=== PATIENT | female | born 1930 | race Caucasian/White ===

== ENCOUNTER 2019-01-05 10:23 | Observation (INO) | payer MEDICARE, OTHER ==
[2019-01-05] MEDS ORDERED: Meclizine TAB* 12.5 MG PO ONE (11:09)
[2019-01-05] MEDS ORDERED: Labetalol IV* 5 MG/ML 20 ML VIAL IV PUSH ONE (11:10)
--- NOTE | 2019-01-05 11:17 | ED ---
Hypertension - HPI Summary HPI Summary: This patient is an 88 year old F presenting to ED with a chief complaint of hypertension since last evening. The patient reports a blood pressure of 175/91 mmHg prior to arrival. The hypertension is alleviated when lying down and is accompanied by dizziness that started at 02:30 and a feeling of unbalance. The patient reports no chest pain, shortness of breath, or headache. Pain is rated 0 /10 in severity. Medications reviewed. Allergies noted. - History of Current Complaint Chief Complaint: EDHypertension Stated Complaint: NEEDS BRAIN SCAN PER PT Time Seen by Provider: 01/05/19 11:02 Hx Obtained From: Patient Onset/Duration: Started Hours Ago Timing: Constant, Lasting Hours Reported Blood Pressure Prior To Arrival: 175/91 Aggravating Factor(s): Nothing Alleviating Factor(s): Position - Lying down Associated Signs & Symptoms: Dizziness, Other: - loss of balance Related Hx: Diagnosed As: - HTN - Allergies/Home Medications Allergies/Adverse Reactions: Allergies Allergy/AdvReac Type Severity Reaction Status Date / Time No Known Allergies Allergy Verified 01/05/19 10:28 Home Medications: Home Medications Simvastatin TAB(NF) [Zocor 20 MG (NF)] 20 mg PO DAILY 01/05/19 [History Confirmed 01/05/19] amLODIPine TAB* [Norvasc 5 mg TAB*] 2.5 mg PO DAILY 01/05/19 [History Confirmed 01/05/19] PMH/Surg Hx/FS Hx/Imm Hx Previously Healthy: Yes Endocrine/Hematology History: Denies: Hx Diabetes Cardiovascular History: Reports: Hx Hypercholesterolemia, Hx Hypertension Musculoskeletal History: Reports: Hx Scoliosis - Cancer History Cancer Type, Location and Year: Colon cancer in remission - Surgical History Surgical History: Yes Surgery Procedure, Year, and Place: Knee replacement Infectious Disease History: No Infectious Disease History: Denies: Traveled Outside the [place] in Last 30 Days - Family History Known Family History: Positive: Cardiac Disease, Hypertension, Diabetes - Social History Alcohol Use: None Hx Substance Use: No Substance Use Type: Reports: None Hx Tobacco Use: No Smoking Status (MU): Never Smoked Tobacco Review of Systems Negative: Fever Negative: Chest Pain Negative: Shortness Of Breath Neurological: Other - Dizziness, loss of balance Negative: Headache All Other Systems Reviewed And Are Negative: Yes Physical Exam - Summary Physical Exam Summary: VITAL SIGNS: Reviewed. GENERAL: Patient is a well-developed and nourished female who is lying comfortable in the stretcher. Patient is not in any acute respiratory distress. HEAD AND FACE: No signs of trauma. No ecchymosis, hematomas or skull depressions. No sinus tenderness. EYES: PERRLA, EOMI x 2, No injected conjunctiva, no nystagmus. EARS: Hearing grossly intact. Ear canals and tympanic membranes are within normal limits. MOUTH: Oropharynx within normal limits. NECK: Supple, trachea is midline, no adenopathy, no JVD, no carotid bruit, no c- spine tenderness, neck with full ROM. CHEST: Symmetric, no tenderness at palpation. LUNGS: Clear to auscultation bilaterally. No wheezing or crackles. CVS: Regular rate and rhythm, S1 and S2 present, no murmurs or gallops appreciated. ABDOMEN: Soft, non-tender. No signs of distention. No rebound, no guarding, and no masses palpated. Bowel sounds are normal. EXTREMITIES: FROM in all major joints, no edema, no cyanosis or clubbing. NEURO: Alert and oriented x 3. No acute neurological deficits. Speech is normal and follows commands. SKIN: Dry and warm. GCS: 15. Triage Information Reviewed: Yes Vital Signs On Initial Exam: Initial Vitals Temp Pulse Resp BP Pulse Ox 98.0 F 81 16 170/116 98 01/05/19 10:28 01/05/19 10:28 01/05/19 10:28 01/05/19 10:28 01/05/19 10:28 Vital Signs Reviewed: Yes - [place] Coma Scale Best Eye Response: 4 - Spontaneous Best Motor Response: 6 - Obeys Commands Best Verbal Response: 5 - Oriented Coma Scale Total: 15 Diagnostics - Vital Signs Vital Signs Temp Pulse Resp BP Pulse Ox 01/05/19 10:28 98.0 F 81 16 170/116 98 - Laboratory Result Diagrams: 01/05/19 11:45 01/06/19 06:02 Lab Statement: Any lab studies that have been ordered have been reviewed, and results considered in the medical decision making process. - Radiology Chest XR Radiology Interpretation Completed By: Radiologist Summary of Radiographic Findings: IMPRESSION: No acute cardiopulmonary process by radiograph. ED Physician has reviewed this radiology report. Brain MRI Radiology Interpretation Completed By: Radiologist Summary of Radiographic Findings: Impression: 1. No acute intracranial abnormality. 2. 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 3. Moderate cerebral volume loss. ED physician has reviewed this report. - CT Head CT CT Interpretation Completed By: Radiologist Summary of CT Findings: IMPRESSION: 1. No acute intracranial abnormality by CT. 2. 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 3. Mild cerebral and cerebellar volume loss. ED physician has reviewed this radiology report. - EKG 1115 Cardiac Rate: NL - 73 bpm EKG Rhythm: Sinus Rhythm Summary of EKG Findings: EKG at 1115 shows normal sinus rhythm at [address] elevations. Normal axis. Re-Evaluation - Re-Evaluation First Eval Re-Evaluation Time: 12:15 Change: Unchanged Comment: Patient is still feeling dizzy following medications. Her BP continues to be elevated. Second Eval Re-Evaluation Time: 13:30 Change: Unchanged Comment: Patient continues to be dizzy. Third Eval Re-Evaluation Time: 14:15 Change: Unchanged Comment: We discussed likely plan for admission as the patient is still dizzy. Hypertension Course/Dx - Course Assessment/Plan: Patient is an 88 y/o F with a chief complaint of hypertensive episode accompanied by dizziness beginning this morning at 0230. Blood work without any significant abnormality except for sodium level of 129, chloride of 95, and glucose of 106. The troponin is 0.00. Urinalysis is negative for infection. In the ED course, the patient was initially given Labetalol since the patients blood pressure is elevated, and she was given meclizine for dizziness. Head CT impression: No acute interconnected abnormality. Moderate chronic small vessel ischemic disease. Mild cerebral and cerebellar volume loss. The blood pressure stayed elevated to 159/91 mmHg, therefore the patient was given an additional dose of Amlodipine 5 mg by mouth, which is her usual dose for hypertension. Patients dizziness continued to be present therefore the patient was given Valium. She was also given Zofran for nausea and vomiting , which resolved her symptoms. After these medications, she was instructed to ambulate, and the patient continues to be dizzy. Therefore, I decided to do an MRI of the brain. MRI of the brain impression: No acute intracranial abnormality. Patient continues to be dizzy, therefore I discussed my physical exam and findings with Dr. Martin who accepted the patient for admission. The patient is hemodynamically stable alert and oriented 3. - Diagnoses Provider Diagnoses: Dizziness - Physician Notifications Discussed Care Of Patient With: Neelam Martin - Hospitalist Time Discussed With Above Provider: 14:30 Instructed by Provider To: Admit As Observation - I discussed the patient's case with Dr. Martin and she accepts the patient for admission. Discharge ED - Sign-Out/Discharge Documenting (check all that apply): Patient Departure - Accepted for admission Patient Received Moderate/Deep Sedation with Procedure: No - Discharge Plan Condition: Stable Disposition: ADMITTED TO [facility] - Billing Disposition and Condition Condition: STABLE Disposition: Admitted to [facility] - Attestation Statements Document Initiated by Scribe: Yes Documenting Scribe: Yadiel Thurston Provider For Whom Adrian is Documenting (Include Credential): Joni Espinosa MD. Scribe Attestation: Yadiel Wiley, scribed for Joni Espinosa MD. on 01/06/19 at 1828. Scribe Documentation Reviewed: Yes Provider Attestation: The documentation as recorded by the scribeYadiel accurately reflects the service I personally performed and the decisions made by , Joni Espinosa MD. Status of Scribe Document: Viewed
[2019-01-05 11:53] LABS: ABS Lymphocytes 0.6 10^3/ul (1.0-4.8); ABS Monocytes 0.4 10^3/ul (0-0.8); ABS Neutrophils 5.5 10^3/ul (1.5-7.7); Eosinophil % 0.1 %; Hematocrit 42 % (35-47); Hemoglobin 14.5 g/dL (12.0-16.0); Lymphocyte % 9.4 %; Mean Corpuscular HGB Conc 34 g/dL (31-36); Mean Corpuscular Hemoglobin 34 pg (27-31); Mean Corpuscular Volume 98 fL (80-97); Mean Platelet Volume 8.7 fL (7.4-10.4); Platelet Count 245 10^3/uL (150-450); Red Cell Distribution Width 13 % (10-15); White Blood Count 6.6 10^3/uL (3.5-10.8)
[2019-01-05 12:10] LABS: Albumin 4.4 g/dL (3.2-5.2); Albumin/Globulin Ratio 1.5 (1-3); C Reactive Protein 1.05 mg/L (<8.01); Calcium 9.5 mg/dL (8.6-10.3); EGFR African American 106.5 (>60); Magnesium 1.9 mg/dL (1.9-2.7); Total Bilirubin 0.5 mg/dL (0.2-1.0); Total Protein 7.4 g/dL (6.4-8.9)
[2019-01-05] MEDS ORDERED: amLODIPine TAB* 5 MG PO ONE (12:36)
[2019-01-05 12:47] LABS: TSH (Thyroid Stimulating Horm) 1.5 mcIU/mL (0.34-5.60)
[2019-01-05] MEDS ORDERED: Diazepam TAB(*) 5 MG PO ONE (13:30)
[2019-01-05 15:43] LABS: Urine Appearance Clear; Urine Bilirubin Negative (Negative); Urine Blood Negative (Negative); Urine Color Yellow; Urine Glucose Negative (Negative); Urine Ketones Negative (Negative); Urine Nitrite Negative (Negative); Urine Protein Negative (Negative); Urine Specific Gravity 1.015 (1.010-1.030); Urine Urobilinogen Negative (Negative)
[2019-01-05] MEDS ORDERED: Acetaminophen TAB* 325 MG PO PRN (16:52)
[2019-01-05] MEDS ORDERED: Enoxaparin(*) 30 MG/0.3 ML SYR SUBCUT SCH (18:00)
--- NOTE | 2019-01-05 18:26 | HP ---
History of Present Illness - History of Present Illness Reason for Visit: Dizziness History of Present Illness: 88 y/o F with history of Hypertension, Hyperlipidemia, Colon cancer(s/p surgery and chemo), scoliosis presented with dizziness that started 2:30 AM in the morning when she woke up from sleep to urinate. She felt unsteady at that time but could to go the bathroom and come back. She woke in the morning and she still had dizziness; she felt as the room is spinning around. She states that her dizziness was worse when standing or getting up and decreased while she was lying down. No relation to specific activities like getting overhead bins, tieing shoe lace. She had some nausea but no vomiting and tinnitus. She then checked her Blood Pressure three time and it was 175/91 mm Hg. she then called her PCP and visited where her BP was still high. ECG was normal. She was then asked to come here. There is no history of weakness, aphasia, slurry speech, facial droop, headache. She denies recent upper respiratory tract infection like runny nose, sore throat, fever or cough. No history of chest pain, palpitation or syncope. She states that she has some urgency but no increased frequency or burning micturition. On ED, her BP was noted to be 170/116 mm Hg; other Vital signs normal. She was given labetalol 10 mg IV and meclizine 50mg PO and diazepam 2.5 mg PO. 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 Chest XRay was normal. Brain CT and MRI didnot showed any acute changes. - Past Medical History Past Medical History: 1. Hypertension 2. Hyperlipidemia 3. Scoliosis; diagnosed on 2005, had difficulty in walking and worked with PT but didnot helped 4. Colon Cancer- 16 years ago; treated surgically and with chemo 5. Varicose vein - Past Surgical History Past Surgical History: 1. Left knee Replacement-2005 - Past Family History Past Family History: Family history positive for dementia and cancer in father. Her brother had some aneurysm and of heart disease. She has 3 children. - Past Social History Past Social History: She is and lives with her . She doesnot smoke and doesnot drinks alcohol. No recreational drug use. Her health care proxy is her -Kobe Moss([phone]) - Health Maintenance Health Maintenance: Had DEXA scan 1 year ago which was normal. Review of Systems - Review of Systems Gastrointestinal: Positive: Nausea Genitourinary: Positive: Other - urgency - Medications/Allergies Allergies/Adverse Reactions: Allergies Allergy/AdvReac Type Severity Reaction Status Date / Time No Known Allergies Allergy Verified 01/05/19 10:28 Medications: Current Medications Acetaminophen (Tylenol Tab*) 650 mg PO Q4H PRN PRN Reason: MILD PAIN or TEMP > 100.4 Amlodipine Besylate (Norvasc Tab*) 2.5 mg PO DAILY [facility] Atorvastatin Calcium (Lipitor*) 10 mg PO DAILY [facility] Enoxaparin Sodium (Lovenox(*)) 30 mg SUBCUT Q24H [facility] Lisinopril (Prinivil Tab*) 5 mg PO DAILY [facility] Exam Vital Signs: Vital Signs (72 hours) 01/05/19 01/05/19 01/05/19 10:28 11:23 11:24 Temperature 98.0 F Pulse Rate 81 78 76 Respiratory 16 18 16 Rate Blood Pressure 170/116 166/88 (mmHg) O2 Sat by Pulse 98 97 97 Oximetry 01/05/19 01/05/19 01/05/19 11:52 12:09 12:11 Temperature Pulse Rate 74 Respiratory 21 15 20 Rate Blood Pressure 132/81 159/91 (mmHg) O2 Sat by Pulse 97 Oximetry 01/05/19 01/05/19 01/05/19 12:23 12:45 12:53 Temperature Pulse Rate 67 Respiratory 20 25 17 Rate Blood Pressure 139/79 148/83 152/82 (mmHg) O2 Sat by Pulse 89 Oximetry 01/05/19 01/05/19 01/05/19 13:00 13:19 13:21 Temperature Pulse Rate 68 Respiratory 20 12 26 Rate Blood Pressure 146/77 162/85 (mmHg) O2 Sat by Pulse 97 Oximetry 01/05/19 01/05/19 01/05/19 13:22 13:23 13:28 Temperature Pulse Rate 70 75 Respiratory 15 24 Rate Blood Pressure 158/89 157/81 158/89 (mmHg) O2 Sat by Pulse 97 Oximetry 01/05/19 01/05/19 01/05/19 13:44 13:53 14:00 Temperature Pulse Rate 67 67 Respiratory 18 13 16 Rate Blood Pressure 135/76 (mmHg) O2 Sat by Pulse 92 92 Oximetry 01/05/19 01/05/19 01/05/19 14:32 14:53 15:00 Temperature Pulse Rate 71 70 71 Respiratory 22 27 25 Rate Blood Pressure 135/77 128/79 (mmHg) O2 Sat by Pulse 95 93 92 Oximetry 01/05/19 01/05/19 01/05/19 15:23 15:53 16:00 Temperature Pulse Rate 77 76 77 Respiratory 23 19 21 Rate Blood Pressure 150/98 146/83 (mmHg) O2 Sat by Pulse 97 95 95 Oximetry 01/05/19 01/05/19 01/05/19 16:53 17:00 17:23 Temperature Pulse Rate 70 67 67 Respiratory Rate Blood Pressure 121/70 116/67 (mmHg) O2 Sat by Pulse 91 93 93 Oximetry 01/05/19 17:55 Temperature 97.8 F Pulse Rate 67 Respiratory 18 Rate Blood Pressure 116/67 (mmHg) O2 Sat by Pulse 93 Oximetry Exam: Patient is lying on a bed and feeling sleepy. HEENT: Normocephalic and atraumatic. Sclera anicteric, No pallor. Wears hearing aid. Beatrice Hallpike's maneuver negative Lungs: Clear with no added sound. Heart: S1/S2 heard with no murmur, rubs or gallop Abdomen: Soft, nondistended and nontender. Old scar in midline. NOrmal Bowel sound heard Extremities; Dilated and tortous vein noted. No swelling or cyanosis. Neuro: Alert, oriented and conscious. CN intact except for hearing loss. Motor and sensory normal. NO aphasia. Gait is unsteady and has scoliosis. Assessment/Plan - Assessment/Plan Assessment: 88 y/o F with h/o HTN, HLD, Colon cancer(treated), scoliosis presented with sudden onset dizziness that lasted for hours and severe hypertension with no focal deficit. Brain Ct and MRI negative for acute changes. Plan: 1. Vertigo: Her symptoms are suggestive for peripheral vertigo but we need to rule out central causes as well. Differential include- BPPV, Meniere's, Vertebrobasilar insuffiency, Vestibular neuritis,or idiopathic. To rule out stroke/TIA CT and MRI of brain was done which was negative for acute changes. Most likely could be peripheral. We will admit her on observation and watch for any worsening or improvement of symptoms.We will ask PT to evaluate her and if necessary will consult Neuro. 2. Hyponatremia: Could be due to dehydration or due to use of HCTZ. We stopped her HCTZ and will check her BMP tomorrow. 3. Hypertension: We stopped her HCTZ and started onlisinopril 5 mg PO daily and continue her home amlodipine. 4. Hyperlipidemia: On simvastatin. We will check her Lipid panel tomorrow. 5.DVT Prophylaxis: On lovenox 6. Full code Attestation Documenting Resident: Chele Centeno Supervising Physician: Maegan Licea Attestation: This service has been performed in part by a resident under the direction of a teaching physician.I, Maegan Licea, performed the service, or was physically present during the critical, or noguera portions of the service, furnished by the resident. I participated in the management of the patient.
[2019-01-05] MEDS ORDERED: NS 0.9% 1000 ML** 1,000 ML IV ONE (18:54)
[2019-01-06 06:31] LABS: BUN/Creatinine Ratio 22.7 (8-20); EGFR African American 102.7 (>60); EGFR Non-African American 84.9 (>60); HDL Cholesterol 66.8 mg/dL; Potassium 3.9 mmol/L (3.5-5.0)
--- NOTE | 2019-01-06 06:42 | PN ---
Subjective Date of Service: 01/06/19 Interval History: HD1 on 01/06/2019 88 y/o F with h/o HTN, HLD, Colon cancer(treated), scoliosis presented with sudden onset dizziness that lasted for hours and severe hypertension with no focal deficit. Brain Ct and MRI negative for acute changes. No acute overnight events VS stable Patient is feeling well. nO dizziness. wants to go home. Objective Active Medications: Acetaminophen (Tylenol Tab*) 650 mg PO Q4H PRN PRN Reason: MILD PAIN or TEMP > 100.4 Amlodipine Besylate (Norvasc Tab*) 2.5 mg PO DAILY [facility] Atorvastatin Calcium (Lipitor*) 10 mg PO DAILY [facility] Enoxaparin Sodium (Lovenox(*)) 30 mg SUBCUT Q24H [facility] Last Admin: 01/05/19 18:31 Dose: 30 mg Lisinopril (Prinivil Tab*) 5 mg PO DAILY [facility] Vital Signs - 8 hr 01/05/19 01/06/19 23:38 04:06 Temperature 97.3 F 97.3 F Pulse Rate 69 68 Respiratory 19 18 Rate Blood Pressure 111/66 121/68 (mmHg) O2 Sat by Pulse 98 96 Oximetry Oxygen Devices in Use Now: None Exam: Patient is lying on a bed. HEENT: Normocephalic and atraumatic. Sclera anicteric, No pallor. Wears hearing aid. Lungs: Clear with no added sound. Heart: S1/S2 heard with no murmur, rubs or gallop Abdomen: Soft, nondistended and nontender. Old scar in midline. NOrmal Bowel sound heard Extremities; Dilated and tortous vein noted. No swelling or cyanosis. Neuro: Alert, oriented and conscious. CN intact except for hearing loss. Motor and sensory normal. No aphasia. Gait normal Result Diagrams: 01/05/19 11:45 01/06/19 06:02 Assess/Plan/Problems-Billing Assessment: 88 y/o F with h/o HTN, HLD, Colon cancer(treated), scoliosis presented with sudden onset dizziness that lasted for hours and severe hypertension with no focal deficit. Brain Ct and MRI negative for acute changes. - Patient Problems (1) Vertigo Status: Acute Code(s): R42 - DIZZINESS AND GIDDINESS SNOMED Code(s): 299511974 Comment: most likely peripheral- BPPV, Vestibular neuritis, Meniere's, Idiopathic No focal deficits, acute imaging changes-ruled out central idiopathic- couldnot elicit nystagmus in briana-hallpike's, no URI, no tinnitus. improved after getting 1L of NS. No improvement on meclizine (2) Hypertension Status: Acute Code(s): I10 - ESSENTIAL (PRIMARY) HYPERTENSION SNOMED Code(s) : 89327755 Comment: 170/110 on ED At home 3 reading of BP around 170/100. received IV labetalol at ED BP controlled thiazide diuretic changed to lisinopril because of hyponatremia which could be causing dizziness. (3) Hyperlipidemia Status: Acute Code(s): E78.5 - HYPERLIPIDEMIA, UNSPECIFIED SNOMED Code(s): 63150759 Comment: On atorvastatin (4) DVT prophylaxis Status: Acute Code(s): Z29.9 - ENCOUNTER FOR PROPHYLACTIC MEASURES, UNSPECIFIED SNOMED Code(s): 655720591 Comment: on lovenox (5) Full code status Status: Acute Code(s): Z78.9 - OTHER SPECIFIED HEALTH STATUS SNOMED Code(s) : 249987566 Status and Disposition: observation can be dc after PT evaluation Attending: Maegan Licea Attestation Documenting Resident: Chele Centeno Supervising Physician: Maegan Licea Attestation: This service has been performed in part by a resident under the direction of a teaching physician.I, Maegan Licea, performed the service, or was physically present during the critical, or noguera portions of the service, furnished by the resident. I participated in the management of the patient.
[2019-01-06 08:45] VITALS: BP 142/75
[2019-01-06] MEDS ORDERED: Lisinopril TAB* 5 MG PO SCH (09:00)
[2019-01-06] MEDS ORDERED: amLODIPine TAB* 5 MG PO SCH (09:00)
[2019-01-06] MEDS ORDERED: Atorvastatin* 10 MG TAB PO SCH (09:00)
--- NOTE | 2019-01-06 22:54 | DS ---
CC: Mamadou David MD.* DISCHARGE SUMMARY: DATE OF ADMISSION: 01/05/19 DATE OF DISCHARGE: 01/06/19 PRIMARY CARE PHYSICIAN: Mamadou David MD. PRIMARY DIAGNOSIS: Vertigo of unknown etiology. SECONDARY DIAGNOSES: 1. Hypertension. 2. Hyperlipidemia. 3. Scoliosis. 4. Colon cancer, treated 16 years ago with surgery and chemo. DISCHARGE MEDICATIONS: 1. Amlodipine 2.5 mg daily. 2. Lisinopril 5 mg daily. 3. Simvastatin 20 mg daily. 4. Acetaminophen 650 every 4 hours as needed for pain. HISTORY OF PRESENT ILLNESS: Ms. Moss is an 88-year-old woman with hypertension, hyperlipidemia, colon cancer, status post surgery and chemo, scoliosis, who presented with dizziness that started around 2:30 a.m. on the day of presentation. She reports waking up from sleep to urinate. After getting up, she suddenly felt unsteady, but was able to go to the bathroom and come back. When she awoke that morning, she still had dizziness, she felt as though the room was spinning around her. She states that her dizziness was worse with standing or getting up and decreased while she was lying down. She denies relation to specific events such as reaching for overhead and tying her shoelace. She denied lightheadedness. She experienced some nausea, but no vomiting. She denied tinnitus. When she checked her blood pressure at home, it was in the 170s/90s, so she called her PCP where they scheduled her for same day visit. As her blood pressure was still elevated and she had ongoing dizziness, she was referred to the ER for further care. Her EKG in clinic was normal. Of note, the patient denies focal weakness, aphasia, slurred speech, facial droop or headache. She has had no recent upper respiratory tract infection or ear fullness or pain. She has had some urinary urgency, but no increased frequency, dysuria or changes in her urine color. HOSPITAL COURSE: In the ER, her blood pressure was 170/116. Her other vital signs are within normal limits. She was given labetalol 10, meclizine 50, diazepam 2.5. Afterwards she experienced significant dizziness, especially upon standing. An EKG was done and showed normal rate and rhythm with evidence of old infarct. A chest x-ray was normal. A brain CT and MRI did not show any acute changes. The patient's electrolytes were significant for hyponatremia and possible slight prerenal azotemia. It was thought she may be slightly volume down given her hydrochlorothiazide, so this medicine was discontinued and switched to amlodipine. She was given a liter of normal saline. By next morning her symptoms had resolved. She was seen and evaluated by Physical Therapy, who stated that the patient had no dizziness upon evaluation. She did not require skilled PT services and they cleared her for discharge. The patient was eager to return to home. PERTINENT STUDIES AND LABS: Hemoglobin 14.5, which is normal, with MCV slightly elevated to 98. Sodium 129 on presentation, 132 on discharge. BUN/creatinine on discharge 15/0.66. LFTs are unremarkable. LDL cholesterol 76 with HDL 66 and total 154. Triglycerides 58 TSH 1.5. UA was clear. Brain CT was without acute intracranial abnormality, moderate chronic small vessel ischemic disease is likely, mild cerebral and cerebellar volume loss. Brain MRI without acute intracranial abnormality. DISCHARGE PLAN: The patient will be discharged home to follow up with her primary care physician. Her home medication should be continued as above, with the following notable changes. Her hydrochlorothiazide was discontinued and she was switched to lisinopril. She was educated on return precaution, which include, but are not limited to, recurrence of dizziness, especially if associated with new focal neuro changes. She was instructed to take her blood pressure once a day in the morning after being seated for a few minutes. She should bring the log of these blood pressures to her PCP. She should eat a healthy diet, low in processed foods, and resume activity as tolerated. DISPOSITION: To home. CONDITION: Good. TIME SPENT: Approximately 60 minutes were spent on the discharge of this patient, more than half of which was spent in care and coordination at bedside, for the interview and exam. [id number]/[facility] #: [id number] BRIAN
== END 2019-01-06 11:40 | disposition home or self-care (01) ==
LOC: ED 10:23 → MED 16:42
PROVIDERS: ADMIT Internal Medicine; ATTEND Internal Medicine
DX: R42 Dizziness and giddiness (principal); I10 Essential (primary) hypertension; E78.5 Hyperlipidemia, unspecified; I83.90 Asymptomatic varicose veins of unspecified lower extremity; M41.9 Scoliosis, unspecified; Z79.899 Other long term (current) drug therapy; Z85.038 Personal history of other malignant neoplasm of large intestine; Z92.21 Personal history of antineoplastic chemotherapy
CPT/HCPCS: 36415; 70450; 70551; 71046; 80048; 80053; 80061; 81003; 83036; 83605; 83735; 83880; 84443; 84484; 85025; 86140; 93005; 99285; A9270-GY; G0378; J1650